=== PATIENT | male | born 1940 | race Caucasian/White ===

== ENCOUNTER 2025-07-30 11:56 | Emergency (ER) | payer MEDICARE, SELFPAY ==
--- NOTE | ~2025-07-30 | CT_ITS ---
CT HEAD NON-CONTRAST Clinical History: possible Head injury/ AMS Comparison: Head injury Technique: Unenhanced axial images skull base to vertex Coronal, sagittal reformats CT images acquired with automatic exposure control for dose reduction DLP: 681 mGy-cm Findings: Age-related atrophy. Chronic white matter microvascular ischemic changes. Chronic infarct right basal ganglia. Sulci, ventricles: Unremarkable. No intracerebral hemorrhage. No evidence acute territorial infarct. No mass effect, midline shift. Bony calvarium intact. Visualized paranasal sinuses: Clear. Mastoid air cells: Small fluid right maxillary. IMPRESSION: 1. No acute intracranial findings. Reviewed, dictated and finalized at location R. NE COMMUNITY MANAGER
[2025-07-30 11:56] VITALS: BP 124/90; PULSE 65; RESP 18; TEMP 36.8; O2SAT 96
--- NOTE | 2025-07-30 12:43 | ED_ITS ---
HPI - Fall General Chief Complaint: Fall Stated Complaint: fall Time Seen by Provider: 07/30/25 12:15 Source: patient and EMS Mode of arrival: EMS Limitations: physical limitation and clinical condition History of Present Illness HPI Narrative: This is a an 85-year-old male with group home patient currently diagnosed with MRSA and has a PICC line and heparin lock with history of hypertension. custodial staff found the patient on the floor he had slid out of bed, noting there was no injuries does not complain of any headache or blurry vision no nausea vomiting no extremity pain, no abdominal pain no fever chills no chest pain or shortness of breath. MD complaint: fall Onset (ago): hour(s) Fall from: out of bed Place fall occurred: group home/SNF Prolonged down time: no Review of Systems Review of Systems: All systems reviewed & are unremarkable except as noted in HPI and below Exam Const: General: no acute distress Nutritional Appearance: obese Limitations: behavioral limitations and physical limitations HENMT: Head: normal to inspection Eyes: Conjunctivae: conjunctivae normal Pupils: Equal, round and reactive pupils present EOM: EOMs intact bilaterally Neck: Neck: normal visual inspection, no lymphadenopathy and no meningeal signs Chest: Chest palpation & inspection: normal inspection of the chest Resp: Effort & Inspection: normal respiratory effort Auscultation: clear to auscultation bilaterally Cardio: Rate: regular rate Rhythm: regular rhythm GI: Auscultation: normal bowel sounds : Other: Has an indwelling Yap Urinary Catheter: Urinary Catheter: patent and draining and urine clear Back/Spine/Pelvis: Back: no CVA tenderness Skin: General skin exam: normal color Rashes: no rashes Wounds: no wounds Neuro: General: no meningeal signs and no focal motor deficits Speech: Abnormal speech present Extrem: General: normal to inspection Course Course Emergency Course: Medical decision making Marielle of: The patient was evaluated by myself in the emergency department. History obtained from the patient who is independent historian and physical exam performed and witnessed by nurse. Patient had a CT scan of the brain which showed no acute intracranial abnormalities. Assessment: Patient is doing well on repeat exam with no acute distress Symptoms stable since arrival to the emergency department. Patient agrees with discussion after shared medical decision-making and agrees with discharge back to the group home. All questions answered to the patient's satisfaction. MDM Differential Diagnosis Differential Diagnosis: Fall with no injuries Imaging Data Radiologist's impression: ITS Impressions Head CT 07/30/25 12:37 IMPRESSION: 1. No acute intracranial findings. Critical Care Time Critical Care Time Critical Care Time: No Discharge Plan Discharge Clinical Impression: Fall Patient Disposition: NH [facility]/Asst Living Condition: Stable Instructions: Antibiotic Form, Fall Prevention for Older Adults (ED) Additional Instructions: Advised follow-up with primary care physician within next 3 to 5 days, and fall prevention while at the group home. Patient Language: Romanian Follow-up/Referrals: RenyKp M.D. [Primary Care Provider] Stand Alone Forms: Long-Term Discharge Time of Disposition: 12:48
[2025-07-30 13:00] VITALS: BP 128/84; PULSE 68; RESP 15; TEMP 36.8; O2SAT 97
== END 2025-07-30 13:40 ==
PROVIDERS: Emergency Provider Emergency Medicine; PCP Internal Medicine
DX: Z04.3 Encounter for examination and observation following other accident (principal); I10 Essential (primary) hypertension; W18.30XA Fall on same level, unspecified, initial encounter; Y92.129 Unspecified place in nursing home as the place of occurrence of the external cause
CPT/HCPCS: 70450; 99284

== ENCOUNTER 2025-07-31 21:14 | Emergency (ER) | payer MEDICARE, SELFPAY ==
[2025-07-31] VITALS (7 sets, daily range): BP systolic 127–141; BP diastolic 70–85; PULSE 72–78; RESP 13–18; TEMP 36.4; O2SAT 95–100
--- NOTE | ~2025-07-31 | XR_ITS ---
Examination: XR chest 1V Clinical History: Accidental fall Comparison: None Technique: Portable AP Findings: Right PICC. Heart size normal. Hazy opacity bilaterally, right lung worse. No acute bony abnormality. IMPRESSION: 1. Large pleural effusions, much better seen on CT. Reviewed, dictated and finalized at location R. RVISOR BURLING AND JOINING
--- NOTE | ~2025-07-31 | XR_ITS ---
Examination: XR pelvis 1-2V Clinical History: Accidental fall Comparison: None Technique: AP pelvis Findings/impression: 1. No pelvic fracture identified given suboptimal positioning. Reviewed, dictated and finalized at location R. LENE PLANT OPERATOR
--- NOTE | ~2025-07-31 | CT_ITS ---
CT HEAD NON-CONTRAST CT C-SPINE Clinical History: FALL. PAIN POSTERIOR HEAD. ON BLOOD THINNERS. Comparison: None Technique: Unenhanced axial images skull base to vertex. Coronal, sagittal reformats. Axial images thoracic inlet to skull base. Sagittal and coronal reformats. CT images acquired with automatic exposure control for dose reduction DLP: 681 mGy-cm Findings: Head: Small rounded hyperdense focus left cerebellum. Chronic infarct right basal ganglia Sulci, ventricles: Unremarkable. No intracerebral hemorrhage. No evidence acute territorial infarct. No mass effect, midline shift, intra-/extra-axial fluid collection. Bony calvarium intact. Visualized paranasal sinuses: Clear. Mastoid air cells: Clear. C-spine: No acute fracture or listhesis. Straightening of normal cervical lordosis. Moderate multilevel degenerative changes. Prevertebral soft tissues within normal limits. Visualized lung apices: Large pleural effusions. Visualized thyroid: Unremarkable. No enlarged cervical nodes. IMPRESSION: HEAD: 1. Small cerebellar hemorrhage. Less likely artifact. Recommend short interval repeat CT. C-SPINE: 1. No acute fracture. 2. Large pleural effusions. Reviewed, dictated and finalized at location R. AT PHOTOCOMPOSING MACHINE OPERATOR IMPRESSION: HEAD: 1. Small cerebellar hemorrhage. Less likely artifact. Recommend short interval repeat CT. C-SPINE: 1. No acute fracture. 2. Large pleural effusions.
--- NOTE | 2025-07-31 21:26 | ED.FALL ---
HPI - Fall General Chief Complaint: Fall Stated Complaint: fall Time Seen by Provider: 07/31/25 21:26 Source: patient and EMS Mode of arrival: ambulatory Limitations: no limitations History of Present Illness HPI Narrative: 85-year-old male, longterm resident with a history of longterm resident, dementia, dyslipidemia, hypothyroidism, KARMEN, hypertension, paroxysmal atrial fibrillation on , CAD status post stents, CKD, recurrent falls was brought in from the longterm after he fell off his bed. The patient has a low bed and he rolled off the bed accidentally. --patient was noted with his head against the dresser. Patient has a history of dementia and denied any complaints. No loss of consciousness. No obvious injury noted as per longterm staff. Patient has a history of chronic Yap's catheter He has a right arm PICC line for IV antibiotics. Patient is on aspirin and small dose of heparin into his PICC line 3 times a day to keep his PICC line open complaint: fall Onset (ago): day(s) (1 hour ago) Fall from: out of bed Fall witnessed: no Place fall occurred: longterm/SNF Loss of consciousness: none Prolonged down time: no Symptoms prior to fall: none Context: history of frequent falls Location of injury: head Associated symptoms (after fall): denies Related Data Home Medications ?Medication ?Instructions ?Recorded ?Confirmed ?Last Taken ?Type aspirin 81 mg tablet 81 mg PO DAILY 07/31/25 07/31/25 Unknown History heparin lock flush (porcine) 10 5 unit IV Q4D 07/31/25 07/31/25 Unknown History unit/mL intravenous solution Allergies Allergy/AdvReac Type Severity Reaction Status Date / Time atorvastatin Allergy Mild RASH Verified 07/31/25 21:41 Review of Systems Review of Systems: ROS unobtainable: Yes unobtainable due to mental status PMFSH Past Medical History Medical History (Updated 07/31/25 @ 23:24 by Carlos A Castano MD) Dyslipidemia Hypothyroidism Hypertension CHF (congestive heart failure) Sacral decubitus ulcer CKD (chronic kidney disease) Afib CAD (coronary artery disease) Dementia Exam Narrative: Afebrile. Pulse of 75. Blood pressure 127/70 Const: Limitations: altered mental status HENMT: Head: normal to inspection Ears: external ears normal Face/Nose/Sinus: Normal external nose present Face and sinus: normal facial exam Mouth: Yes Normal oral and palatal mucosa present Teeth and gingiva: dentition normal (Extensive dental caries) Throat: posterior oropharynx normal Eyes: Conjunctivae: conjunctivae normal Pupils: Equal, round and reactive pupils present EOM: EOMs intact bilaterally Direct Ophthalmoscopy: no photophobia Neck: Neck: normal visual inspection, no lymphadenopathy and no meningeal signs Other: No spinal tenderness Chest: Chest palpation & inspection: normal inspection of the chest Resp: Effort & Inspection: normal respiratory effort Auscultation: clear to auscultation bilaterally Cardio: Rate: regular rate Rhythm: abnormal rhythm GI: Auscultation: normal bowel sounds Other: No tenderness/rigidity/rebound : General: Yes no CVA tenderness Other: Chronic Yap's catheter Back/Spine/Pelvis: Back: no CVA tenderness Other: No spinal tenderness noted. Skin: General skin exam: normal color Other: Sacral decubitus Neuro: General: moves all extremities and no meningeal signs Cranial nerves: Yes Nystagmus not present Speech: normal speech Other: Has bilateral lower extremity contractures suggestive of bilateral leg weakness Chronic Yap's catheter Extrem: General: normal to inspection and no clubbing, cyanosis or edema Other: Bilateral flexure contractions at the hips and knees. Right arm PICC line Psych: Mental Status: mental status grossly normal Affect: normal affect Attitude: cooperative Course Course Emergency Course: Accidental fall Left intraparenchymal hemorrhage within the left cerebellar hemisphere measuring 0.9-1.3 cm. Vital Signs Vital signs: Vital Signs Temperature 36.4 C 07/31/25 21:17 Pulse Rate 75 07/31/25 21:17 Respiratory Rate 13 07/31/25 21:17 Blood Pressure 127/70 07/31/25 21:17 Pulse Oximetry 98 07/31/25 21:17 Oxygen Delivery Room Air 07/31/25 21:17 Temperature 36.4 C 07/31/25 21:17 Pulse Rate 76 07/31/25 22:46 Respiratory Rate 17 07/31/25 22:46 Blood Pressure 140/70 07/31/25 22:46 Pulse Oximetry 96 07/31/25 22:46 Oxygen Delivery Room Air 07/31/25 22:46 [facility] MDM Narrative Medical decision making narrative: Accidental fall Left intraparenchymal hemorrhage within the left cerebellar hemisphere measuring 0.9X 1.3 cm Differential Diagnosis Differential Diagnosis: Subdural hematoma, subarachnoid hemorrhage Lab Data Lab results narrative: Lab results are pending Imaging Data Attestation: I personally reviewed and interpreted this imaging study as follows: My impression: X-ray of the pelvis did not show any acute findings. Chest x-ray revealed hyperinflation of the left lung. Does not appear to be pneumothorax. ECG Data EKG #1: ECG completion date: 07/31/25 ECG completion time: 23:02 Interpretation: Normal sinus rhythm. Left axis deviation. Poor R-wave progression in anterior leads suggestive of an old anterior infarction. No ST elevation noted. Discharge Plan Discharge Clinical Impression: Intracranial hemorrhage Accidental fall Qualifiers: Encounter type: initial encounter Qualified Code(s): W19.XXXA - Unspecified fall, initial encounter Patient Disposition: Home Condition: Stable Instructions: Antibiotic Form Additional Instructions: Transfer patient to [facility] in [place]. Patient has been accepted by Patient Language: [place] Prescriptions: No Action heparin lock flush (porcine) 10 unit/mL solution 5 unit IV Q4D aspirin 81 mg tablet 81 mg PO DAILY Follow-up/Referrals: Leo,Vania Goodrich [Primary Care Provider] Time of Disposition: 23:24
--- NOTE | 2025-07-31 21:43 | PC.NURSE ---
DR CARPENTER AT THE BEDSIDE.
--- NOTE | 2025-07-31 21:51 | PC.NURSE ---
PATIENT BEING TRANSPORTED TO CT VIA STRETCHER.
--- NOTE | 2025-07-31 22:49 | PC.NURSE ---
Call from Radiologist to speak w/ Dr Castano about pt findings.
--- NOTE | 2025-07-31 22:54 | PC.NURSE ---
SPOKE WITH NURSE JIM AT [facility]. PATIENT HAS INTRACEREBRAL BLEED. REQUESTING WHERE PATIENT IS TO BE TRANSFERRED TO. [facility]
--- NOTE | 2025-07-31 22:56 | ECG_ITS ---
Test Date: 2025-07-31 23:02:11 Measurements Intervals Delta Rate: 73 P: 31 AR: 192 QRS: -31 QRSD: 103 T: -72 QT: 451 QTc: 497 Interpretive Statements SINUS RHYTHM LEFT AXIS DEVIATION POSSIBLE ANTERIOR MYOCARDIAL INFARCTION , OF INDETERMINATE AGE BORDERLINE ST-T WAVE ABNORMALITY- INF/HIGH LAT LEADS ABNORMAL ECG No previous ECG available for comparison Electronically Signed On 08-01-2025 06:22:29 DETAIL MANAGER by Gumaro Guallpa D.O.
--- NOTE | 2025-07-31 23:13 | PC.NURSE ---
MITCHELL WITH LAB AT THE BEDSIDE
[2025-07-31 23:49] LABS: Hematocrit 29.3 % (37.0-46.0); Hemoglobin 8.7 g/dL (12.4-15.3); Immature Granulocyte Percent A 0.2 % (0.0-0.0); Lymphocytes Absolute Auto 0.73 K/mm3 (1.10-4.50); Mean Corpuscular HGB Conc 29.7 g/dL (32-36); Mean Corpuscular Hemoglobin 27.7 pg (27.0-31.0); Mean Corpuscular Volume 93.3 fL (78.0-102.0); Nucleated Red Blood Cells Absolute Auto 0.00 K/mm3 (0.00-0.00); Nucleated Red Blood Cells Perc 0.0 % (0-0.0); Platelet Count Result 179 K/mm3 (150-420); Red Blood Count 3.14 M/mm3 (4.70-6.10); White Blood Count 5.0 K/mm3 (4.8-10.8)
[2025-07-31 23:57] LABS: INR 1.1; Partial Thromboplastin Time 36.5 Sec (23.9-30.70); Prothrombin Time 12.5 Seconds (9.50-12.1)
[2025-08-01 00:04] LABS: Alanine Aminotransferase 11 U/L (6-50); Albumin Level 3.0 g/dL (3.5-5.1); Alkaline Phosphatase 72 U/L (38-126); Anion Gap 5 mmol/L (4-12); Aspartate Amino Transferase 18 U/L (17-59); Bilirubin,Total 0.3 mg/dL (0.2-1.3); Blood Urea Nitrogen 8 mg/dL (9-20); Calcium 8.5 mg/dL (8.4-10.2); Carbon Dioxide 26 mmol/L (22-30); Chloride 110 mmol/L (98-107); Estimated CRCL calculation 54 ml/min; Estimated Glomerular Filt Rate > 60; Glucose 107 mg/dL (65-110); Magnesium 2.4 mg/dL (1.6-2.3); Osmolality Calculated 290 mOsm/kg (285-295); Potassium 3.6 mmol/L (3.4-5.0); Sodium 141 mmol/L (137-145); Total Protein 6.0 g/dL (6.3-8.2)
[2025-08-01 00:23] LABS: Troponin I 0.054 ng/mL (0.000-0.034)
--- NOTE | 2025-08-01 00:33 | PC.NURSE ---
LAB RESULTS FAXED TO [facility].
== END 2025-07-31 23:54 | disposition short-term general hospital (02) ==
PROVIDERS: Emergency Provider Internal Medicine Critical Care Medicine; PCP Internal Medicine
DX: S06.30AA Unspecified focal traumatic brain injury with loss of consciousness status unknown, initial encounter (principal); E03.9 Hypothyroidism, unspecified; I13.0 Hypertensive heart and chronic kidney disease with heart failure and stage 1 through stage 4 chronic kidney disease, or unspecified chronic kidney disease; N18.9 Chronic kidney disease, unspecified; I50.9 Heart failure, unspecified; I48.91 Unspecified atrial fibrillation; I25.10 Atherosclerotic heart disease of native coronary artery without angina pectoris; E78.5 Hyperlipidemia, unspecified; F03.90 Unspecified dementia, unspecified severity, without behavioral disturbance, psychotic disturbance, mood disturbance, and anxiety; Z79.82 Long term (current) use of aspirin; Z79.899 Other long term (current) drug therapy; W06.XXXA Fall from bed, initial encounter; Y92.122 Bedroom in nursing home as the place of occurrence of the external cause
CPT/HCPCS: 36415; 70450; 71045; 72125; 72170; 80053; 83605; 83735; 84484; 85025; 85610; 85730; 93005; 99285

== ENCOUNTER 2025-08-05 06:12 | Emergency (ER) | payer MEDICARE, SELFPAY ==
--- NOTE | ~2025-08-05 | CT_ITS ---
CT HEAD NON-CONTRAST Clinical History: Fall possible head injury Comparison: CT brain 07/31/2025 Technique: Unenhanced axial images skull base to vertex Coronal, sagittal reformats CT images acquired with automatic exposure control for dose reduction DLP: 757 mGy-cm Findings: Chronic infarct right basal ganglia. Chronic white matter microvascular ischemic changes. Sulci, ventricles: Unremarkable. No intracerebral hemorrhage. No evidence acute territorial infarct. No mass effect, midline shift. Bony calvarium intact. Visualized paranasal sinuses: Clear. Mastoid air cells: Clear. IMPRESSION: 1. No acute intracranial findings. Reviewed, dictated and finalized at location R. E BRINE TESTER
--- NOTE | ~2025-08-05 | XR_ITS ---
Examination: XR forearm LT 2V, XR wrist LT min 3V Clinical History: fall? pt states no complaints Comparison: None Technique: 2 views left forearm, 3 views left wrist Findings/impression: Left forearm: 1. No fracture. 2. Small metallic foreign body soft tissues distal humerus. Left wrist: 1. No fracture or dislocation. 2. Severe degenerative changes basal joint of thumb. 3. Radiocarpal joint space narrowing. Reviewed, dictated and finalized at location R. BLOCKER
[2025-08-05 06:17] VITALS: BP 109/62; PULSE 87; RESP 18; TEMP 36; O2SAT 90
--- NOTE | 2025-08-05 06:37 | ED.FALL ---
HPI - Fall General Chief Complaint: Fall Stated Complaint: fall Time Seen by Provider: 08/05/25 06:17 Source: patient and EMS Mode of arrival: EMS Limitations: physical limitation and clinical condition History of Present Illness HPI Narrative: This is an 85-year-old snf patient with history of a head bleed and was transferred to [facility] proximally 4 to 5 days ago and had a fall out of his low lying bed earlier this morning and sent over for evaluation. Patient is currently at his baseline with no neurological deficits no headache no blurry vision no nausea vomiting. The patient is currently on an aspirin and has some swelling to his left wrist and forearm area otherwise no other injuries no neurological deficits has an indwelling Yap catheter with no abdominal pain no chest pain no shortness of breath. complaint: fall Onset (ago): hour(s) Fall witnessed: no Place fall occurred: snf/SNF Loss of consciousness: none Prolonged down time: no Symptoms prior to fall: none Related Data Home Medications ?Medication ?Instructions ?Recorded ?Confirmed ?Last Taken ?Type aspirin 81 mg tablet 81 mg PO DAILY 07/31/25 07/31/25 Unknown History heparin lock flush (porcine) 10 5 unit IV Q4D 07/31/25 07/31/25 Unknown History unit/mL intravenous solution Allergies Allergy/AdvReac Type Severity Reaction Status Date / Time atorvastatin Allergy Mild RASH Verified 07/31/25 21:41 Review of Systems Review of Systems: All systems reviewed & are unremarkable except as noted in HPI and below PMFSH Past Medical History Medical History Dyslipidemia Hypothyroidism Hypertension CHF (congestive heart failure) Sacral decubitus ulcer CKD (chronic kidney disease) Afib CAD (coronary artery disease) Dementia Exam Const: General: no acute distress Nutritional Appearance: well nourished Limitations: physical limitations HENMT: Head: normal to inspection Ears: external ears normal Face and sinus: normal facial exam Eyes: Conjunctivae: conjunctivae normal Pupils: Equal, round and reactive pupils present Neck: Neck: normal visual inspection, no lymphadenopathy and no meningeal signs Chest: Chest palpation & inspection: normal inspection of the chest Resp: Effort & Inspection: normal respiratory effort Auscultation: clear to auscultation bilaterally Cardio: Rate: regular rate Rhythm: regular rhythm GI: GI Palp: Yes Soft to palpation Auscultation: normal bowel sounds : General: Yes bladder normal to palpation Urinary Catheter: Urinary Catheter: patent and draining and urine clear Back/Spine/Pelvis: Back: no CVA tenderness Skin: Wounds: wounds noted Other: Has superficial bruising chronic to his arms Neuro: General: moves all extremities, no meningeal signs and no focal motor deficits Extrem: Other: Left wrist and forearm swelling Course Vital Signs Vital signs: Vital Signs Temperature 36.0 C L 08/05/25 06:17 Pulse Rate 87 08/05/25 06:17 Respiratory Rate 18 08/05/25 06:17 Blood Pressure 109/62 08/05/25 06:17 Pulse Oximetry 90 08/05/25 06:17 Oxygen Delivery Room Air 08/05/25 06:17 Temperature 36.0 C L 08/05/25 06:17 Pulse Rate 87 08/05/25 06:17 Respiratory Rate 18 08/05/25 06:17 Blood Pressure 109/62 08/05/25 06:17 Pulse Oximetry 90 08/05/25 06:17 Oxygen Delivery Room Air 08/05/25 06:17 MDM Differential Diagnosis Differential Diagnosis: UTI/falls Critical Care Time Critical Care Time Critical Care Time: No Discharge Plan Discharge Clinical Impression: Fall, Acute UTI Patient Disposition: Home Condition: Stable Instructions: Antibiotic Form, Urinary Tract Infection in Older Adults (ED) Additional Instructions: Advised to take medication as prescribed and follow-up with primary care physician within 3 to 5 days. Patient Language: [place] Citizen Prescriptions: New nitrofurantoin monohyd/m-cryst [Macrobid] 100 mg capsule 100 mg PO Q12H 7 Days Qty: 14 0RF Rx Instructions: must administer with a meal/food No Action heparin lock flush (porcine) 10 unit/mL solution 5 unit IV Q4D aspirin 81 mg tablet 81 mg PO DAILY Follow-up/Referrals: Reny,Vania Goodrich [Primary Care Provider] Time of Disposition: 07:23
--- NOTE | 2025-08-05 06:40 | PC.NURSE ---
LAB AT THE BEDSIDE
--- NOTE | 2025-08-05 06:40 | ECG_ITS ---
Test Date: 2025-08-05 06:45:14 Measurements Intervals Bude Rate: 76 P: 68 GA: 195 QRS: -30 QRSD: 102 T: 269 QT: 435 QTc: 490 Interpretive Statements SINUS RHYTHM WITH SINUS ARRHYTHMIA POSSIBLE ANTERIOR MYOCARDIAL INFARCTION , OF INDETERMINATE AGE BORDERLINE ST-T WAVE ABNORMALITY- INF/LAT LEADS BASELINE ARTIFACT- V1-V3 ABNORMAL ECG Compared to ECG 07/31/2025 23:02:11 NO SIGNIFICANT CHANGE Electronically Signed On 08-05-2025 08:44:16 STEAM ROOM ATTENDANT by Gumaro Guallpa D.O.
[2025-08-05 06:43] LABS: Hematocrit 28.5 % (37.0-46.0); Hemoglobin 8.4 g/dL (12.4-15.3); Immature Granulocyte Percent A 0.4 % (0.0-0.0); Lymphocytes Absolute Auto 0.34 K/mm3 (1.10-4.50); Mean Corpuscular HGB Conc 29.5 g/dL (32-36); Mean Corpuscular Hemoglobin 27.5 pg (27.0-31.0); Mean Corpuscular Volume 93.4 fL (78.0-102.0); Nucleated Red Blood Cells Absolute Auto 0.00 K/mm3 (0.00-0.00); Nucleated Red Blood Cells Perc 0.0 % (0-0.0); Platelet Count Result 142 K/mm3 (150-420); Red Blood Count 3.05 M/mm3 (4.70-6.10); White Blood Count 5.1 K/mm3 (4.8-10.8)
[2025-08-05 06:45] LABS: Add Urine Microscopic? YES; Appearance Urine Clear (Clear); Glucose Urine UA Negative (Negative); Leukocyte Esterase Ur 2+ LEU/UL (Negative); Nitrate Urine Negative (Negative); Specific Grav Ur 1.020 (1.010-1.020)
--- NOTE | 2025-08-05 06:45 | PC.NURSE ---
PATIENT TRANSPORTED TO CT VIA STRETCHER
[2025-08-05 06:53] LABS: Budding Yeast Urine Present /hpf
[2025-08-05 06:54] LABS: Alanine Aminotransferase 11 U/L (6-50); Albumin Level 2.7 g/dL (3.5-5.1); Alkaline Phosphatase 65 U/L (38-126); Anion Gap 6 mmol/L (4-12); Aspartate Amino Transferase 27 U/L (17-59); Bilirubin,Total 0.4 mg/dL (0.2-1.3); Blood Urea Nitrogen 9 mg/dL (9-20); Calcium 8.2 mg/dL (8.4-10.2); Carbon Dioxide 23 mmol/L (22-30); Chloride 111 mmol/L (98-107); Estimated CRCL calculation 58 ml/min; Estimated Glomerular Filt Rate > 60; Glucose 120 mg/dL (65-110); Osmolality Calculated 289 mOsm/kg (285-295); Potassium 3.5 mmol/L (3.4-5.0); Sodium 140 mmol/L (137-145); Total Protein 5.3 g/dL (6.3-8.2)
[2025-08-05 06:57] LABS: INR 1.2; Partial Thromboplastin Time 34.5 Sec (23.9-30.70); Prothrombin Time 12.7 Seconds (9.50-12.1)
--- NOTE | 2025-08-05 07:37 | PC.NURSE ---
[facility], informed nurse kami. awaiting staff arrival to shredder picker pt.
[2025-08-05] MEDS: NITROFURANTOIN MONOHYD MACROCR 100 MG CAP PO (07:42)
--- NOTE | 2025-08-05 07:42 | PC.NURSE ---
call from [facility], pt needs to return by ambulance. [facility] called for transport.
[2025-08-05 08:04] VITALS: BP 114/80; PULSE 81; RESP 20; TEMP 36.9; O2SAT 94
--- NOTE | 2025-08-07 12:47 | PC.NURSE ---
FINAL URINE CULTURE REPORT; NO GROWTH.
== END 2025-08-05 08:04 | disposition home or self-care (01) ==
PROVIDERS: Emergency Provider Emergency Medicine; PCP Internal Medicine
DX: N39.0 Urinary tract infection, site not specified (principal); R22.32 Localized swelling, mass and lump, left upper limb; I12.9 Hypertensive chronic kidney disease with stage 1 through stage 4 chronic kidney disease, or unspecified chronic kidney disease; N18.9 Chronic kidney disease, unspecified; I25.10 Atherosclerotic heart disease of native coronary artery without angina pectoris; I48.91 Unspecified atrial fibrillation; E03.9 Hypothyroidism, unspecified; E78.5 Hyperlipidemia, unspecified; F03.90 Unspecified dementia, unspecified severity, without behavioral disturbance, psychotic disturbance, mood disturbance, and anxiety; W06.XXXA Fall from bed, initial encounter
CPT/HCPCS: 36415; 70450; 73090; 73110; 80053; 81001; 83605; 85025; 85610; 85730; 87086; 93005; 99284; A9270